=== PATIENT | male | born 1970 | race Caucasian/White ===

== ENCOUNTER 2017-02-04 11:00 | Emergency (ER) | payer OTHER ==
[2017-02-04 11:10] VITALS: TEMP 98.1; BMI 26.1
--- NOTE | 2017-02-04 11:12 | PDOC ---
History of Present Illness - General Chief Complaint: Lightheaded Stated Complaint: DIZZINESS, VOMITING Time Seen by Provider: 02/04/17 11:07 History Source: Patient Exam Limitations: No Limitations - History of Present Illness Initial Comments: 02/04/17 11:09 46 yo man with HLD and Non Insulin requiring Diabetes presents after he developed the sensation that the room was spinning while driving. He got very nauseated and threw up several times. He did have an episode of fluid in his ear a few months ago and while he is no acute distress, he does have obvious horizontal nystagmus. Timing/Duration: 1 hour Severity: mild Associated Symptoms: denies: denies symptoms Past History - Past Medical History Allergies/Adverse Reactions: Allergies Allergy/AdvReac Type Severity Reaction Status Date / Time No Known Drug Allergies Allergy Verified 02/04/17 11:04 Home Medications: Ambulatory Orders Atorvastatin Ca [Lipitor] 10 mg PO HS 02/04/17 Hydrocodone/Acetaminophen [Hydrocodon-Acetaminoph 7.5-325] 1 each PO TID PRN Meclizine HCl [Antivert -] 25 mg PO QID #120 tablet 02/04/17 Metformin HCl 500 mg PO BID 02/04/17 Ondansetron [Zofran *Odt*] 8 mg SL TID #30 od.tablet 02/04/17 Ranitidine [Zantac -] 150 mg PO DAILY 02/04/17 Asthma: No Cardiac Disorders: No Diabetes: No GI Disorders: Yes (acid reflux) HTN: No - Surgical History Orthopedic Surgery: Yes (knee sx) - Psycho/Social/Smoking Cessation Hx Anxiety: No Suicidal Ideation: No Smoking Status: No Smoking History: Current every day smoker Number of Cigarettes Smoked Daily: 30 'Breaking Loose' booklet given: 07/18/16 Hx Alcohol Use: No Drug/Substance Use Hx: No Substance Use Type: None Review of Systems - Review of Systems Able to Perform ROS?: Yes Is the patient limited Bulgarian proficient: Yes Constitutional: No: Symptoms Reported HEENTM: No: Symptoms Reported Respiratory: No: Symptoms reported Cardiac (ROS): No: Symptoms Reported ABD/GI: Yes: Nausea, Vomiting : No: Symptoms Reported Musculoskeletal: No: Symptoms Reported Integumentary: No: Symptoms Reported Neurological: Yes: Symptoms reported, See HPI, Dizziness Psychiatric: No: Anxiety, Depression Endocrine: No: Symptoms Reported Hematologic/Lymphatic: No: Symptoms Reported All Other Systems: Reviewed and Negative *Physical Exam - Physical Exam Comments: 02/04/17 13:23 46 yo male, nontoxic, NAD HEENT exam unremarkable x for horizontal nystagmus NECK Supple no bruits CHEST CTA Heart RRR No Murmur ABD Soft Non-Tender/Benign EXTR Unremarkable NEURO Intact - Detailed Testing Performed. ED Treatment Course - LABORATORY CBC & Chemistry Diagram: 02/04/17 11:30 02/04/17 11:30 *DC/Admit/Observation/Transfer Diagnosis at time of Disposition: Vertigo, Meniere's disease of both ears - Discharge Dispostion Disposition: HOME Condition at time of disposition: Improved - Prescriptions Prescriptions: Meclizine HCl [Antivert -] 25 mg PO QID #120 tablet Ondansetron [Zofran *Odt*] 8 mg SL TID #30 od.tablet - Referrals Referrals: Yaniv Davila MD [Staff Physician] - He Concepcion MD [Staff Physician] - - Patient Instructions Printed Discharge Instructions: DI for Vertigo, DI for Meniere's Disease Additional Instructions: Don't Drive until Dr. Rosado Says that you can Use the Antivert for spinning Use the Zofran for Nausea or Vomiting Off work until Tuesdsay REturn to us if any problems Best- Dr. Francisco Merritt
[2017-02-04] MEDS ORDERED: SODIUM CHLORIDE 500 ML IV STA (11:45)
[2017-02-04] MEDS ORDERED: MECLIZINE HCL 25 MG TABLET (FP) PO ONE (11:45)
[2017-02-04] MEDS ORDERED: ONDANSETRON 4 MG/2 ML VIAL IVPB ONE (11:45)
[2017-02-04] MEDS ORDERED: MECLIZINE HCL 25 MG TABLET (FP) ONE (11:50)
[2017-02-04] MEDS ORDERED: ONDANSETRON 4 MG/2 ML VIAL ONE (11:50)
[2017-02-04 11:57] LABS: ALBUMIN 4.2 g/dl (3.5-5.0); ALK PHOS 58 U/L (32-92); ANION GAP 9 (8-16); BILIRUBIN,TOTAL 0.5 mg/dl (0.2-1.0); CALCIUM 9.7 mg/dl (8.4-10.2); CO2 24 mmol/L (22-28); CREATININE 0.9 mg/dl (0.6-1.3); GLUCOSE,RANDOM 113 mg/dl (74-106); SGOT/AST 15 U/L (10-42); SGPT/ALT 23 U/L (10-40); TOT PROT 6.9 g/dl (6.4-8.3)
[2017-02-04 11:58] LABS: CPK(DFH) 73 IU/L (38-174)
[2017-02-04 12:03] LABS: INR 1.18 (0.82-1.09); PROTHROMBIN TIME (PATIENT) 13.2 SEC (10.2-13.0)
[2017-02-04 12:25] LABS: MCH 29.8 pg (25.7-33.7); MCHC 33.8 g/dl (32.0-35.9); MEAN CELL VOLUME 88.1 fl (80-96); PLATELET COUNT 542 K/MM3 (134-434); RDW 13.9 % (11.9-15.9); WHITE BLOOD COUNT 13.9 K/mm3 (4.0-10.8)
[2017-02-04 12:42] LABS: TROPONIN I (DFP) < 0.03 ng/ml (0.03-0.50)
[2017-02-04 13:36] VITALS: BP 127/79; PULSE 79
[2017-02-04 21:42] LABS: PLATELET ESTIMATE INCREASED (NORMAL)
--- NOTE | 2017-02-07 10:47 | EKG ---
Test Reason : Blood Pressure : / mmHG Vent. Rate : 078 BPM Atrial Rate : 078 BPM P-R Int : 112 ms QRS Dur : 112 ms QT Int : 368 ms P-R-T Axes : 017 059 042 degrees QTc Int : 419 ms NORMAL SINUS RHYTHM NORMAL ECG WHEN COMPARED WITH ECG OF 27-MAR-2010 12:56, NO SIGNIFICANT CHANGE WAS FOUND Confirmed by HENRI MENDIOLA MD ([id number]) on 02/07/2017 10:46:43 AM Referred By: MD BURNHAM Confirmed By:HENRI MENDIOLA MD
== END 2017-02-04 13:45 | disposition home or self-care (01) ==
LOC: FER 11:00
PROC: 3E033GC Introduction of Other Therapeutic Substance into Peripheral Vein, Percutaneous Approach (ICD-10-PCS; principal; 2017-02-04)
PROC: 3E0337Z Introduction of Electrolytic and Water Balance Substance into Peripheral Vein, Percutaneous Approach (ICD-10-PCS; 2017-02-04)
DX: H81.09 Meniere's disease, unspecified ear (principal); F17.210 Nicotine dependence, cigarettes, uncomplicated; K21.9 Gastro-esophageal reflux disease without esophagitis; E78.5 Hyperlipidemia, unspecified; E11.9 Type 2 diabetes mellitus without complications; Z79.84 Long term (current) use of oral hypoglycemic drugs
CPT/HCPCS: 36415; 70450-TC; 71010-TC; 80053; 82550; 84484; 85025; 85610; 85730; 93005; 99284-25

== ENCOUNTER 2018-12-20 13:05 | Emergency (ER) | payer SELFPAY ==
[2018-12-20 13:22] VITALS: BP 161/101; PULSE 97; TEMP 97.9; BMI 28.3
[2018-12-20] MEDS ORDERED: IBUPROFEN 600 MG TABLET (FP) PO ONE ×2 (13:25→13:27)
--- NOTE | 2018-12-20 13:27 | PDOC ---
History of Present Illness - General Chief Complaint: Injury Stated Complaint: LEFT KNEE PAIN Time Seen by Provider: 12/20/18 13:18 History Source: Patient Exam Limitations: No Limitations - History of Present Illness Initial Comments: 12/20/18 13:27 48-year-old male with history of hypertension, hyperlipidemia, GERD, chronic back pain presenting with left knee pain after twisting his knee as he was jumping off of the truck and landed on his feet. No head injury or LOC. No weakness or paresthesias. He took his Vicodin at home prior to ED presentation she usually takes for his lower back pain from prior injury Past History - Past Medical History Allergies/Adverse Reactions: Allergies Allergy/AdvReac Type Severity Reaction Status Date / Time No Known Drug Allergies Allergy Verified 12/20/18 13:06 Home Medications: Ambulatory Orders Atorvastatin Ca [Lipitor] 10 mg PO HS 02/04/17 Hydrocodone/Acetaminophen [Hydrocodon-Acetaminoph 7.5-325] 1 each PO TID PRN metFORMIN HCL [Metformin HCl] 500 mg PO BID 02/04/17 Asthma: No Cardiac Disorders: No COPD: No Diabetes: No GI Disorders: Yes (acid reflux) HTN: No Other medical history: BACK PAIN - Surgical History Abdominal Surgery: Yes (HERNIE REPAIR) Orthopedic Surgery: Yes (knee sx) - Suicide/Smoking/Psychosocial Hx Smoking Status: No Smoking History: Current every day smoker Have you smoked in the past 12 months: Yes Number of Cigarettes Smoked Daily: 30 Information on smoking cessation initiated: Yes 'Breaking Loose' booklet given: 07/18/16 Hx Alcohol Use: No Drug/Substance Use Hx: No Substance Use Type: None Review of Systems - Review of Systems Able to Perform ROS?: Yes Comments:: 12/20/18 13:29 MUSCULOSKELETAL: No joint pain and swelling. No muscle pain/arthralgias. +knee pain Back: +chronic back pain SKIN: no redness or skin changes, no discharge, no rash. No wounds. Hematologic: no easy bruising/bleeding. NEUROLOGIC: No weakness, numbness or tingling. Allergic/Immunologic: no allergies All other systems reviewed and negative, or as documented in HPI. *Physical Exam - Vital Signs Last Vital Signs Temp Pulse Resp BP Pulse Ox 97.9 F 97 H 20 161/101 H 97 12/20/18 13:05 12/20/18 13:05 12/20/18 13:05 12/20/18 13:05 12/20/18 13:05 - Physical Exam Comments: 12/20/18 13:29 General: NAD, well appearing Vascular: 2+ DP pulses symmetric and equal. Back: no midline tenderness, no stepoffs, FROM MSK: notable for soft compartments, Cap refill <2 sec. Proximal and distal strength 5/5, equal and symmetric. Plantar flexion and dorsiflexion 5/5. FROM. Sensation grossly intact to light touch. +left knee medial and lateral point tenderness, no joint laxity. lateral surgical scar present, well healed. no prox hip or ankle tenderness. no patellar tenderness. quad and patellar tendon intact, nontender. Neuro: alert, no focal neurologic deficits Skin: color normal color, warm and well perfused. Cap refill <2 sec. ED Treatment Course - RADIOLOGY Radiology Studies Ordered: Category Date Time Status KNEE 3 POS-LEFT [RAD] Stat Radiology 12/20/18 13:18 Ordered Medical Decision Making - Medical Decision Making 12/20/18 13:26 hpi as documented VS reviewed mildly hypertensive, but does have pain DDx extremity pain: Sprain, contusion, extremity fracture, arthritis, knee effusion, knee sprain. tendonitis (quad/patellar), patella fx, ligamental tear. Xray left knee with normal joint space alignment, no acute fx or dislocation. no patella or tibial/fibular fx. degenerative joint and patella noted. rpt VS improved, comfortable, still some pain advised nsaids, mild to moderate pain. also has vicodin at home. Discussed results with patient. DON wrap for comfort and knee immobilizer. Rest ice and elevation. Pain control with OTC meds including motrin/tylenol as needed every 6 hours; no narcotics needed. Ortho followup provided - He sees Dr Hernandez at [facility]. [facility]. Please return to ED for increased pain, weakness, numbness/tingling, fever, or redness. 12/20/18 13:30 12/20/18 13:36 12/20/18 14:27 *DC/Admit/Observation/Transfer Diagnosis at time of Disposition: Sprain of left knee/leg - Discharge Dispostion Disposition: HOME Condition at time of disposition: Improved Decision to Admit order: No - Referrals Referrals: Faustino Jackson MD [Staff Physician] - Arnel Yin MD [Staff Physician] - Irwin Hernandez MD [Staff Physician] - - Patient Instructions Printed Discharge Instructions: DI for Knee Sprain Additional Instructions: you most likely have knee sprain avoid heavy lifting or strenuous activity to minimize further injury wear the knee brace for comfort, or don bandage. your x rays were negative for injury or fracture, so likely sprain May take ibuprofen 400-600mg and/or tylenol 650 to 975 mg every 6 hours as needed for mild to moderate pain, available over the counter. This does not require narcotics, as it will precipitate injuries and falls. continue with range of motion exercises, as this will facilitate the healing process; avoid being bed bound and immobile. RICE rest ice elevate the affected extremity Rest, Ice (20 minutes at a time, 3 times a day), Compression (DON wrap or splint ), Elevation (above the heart). Follow up with your primary care physician in 1 week if symptoms persist, or with orthopedics if needed. you usually see Dr Hernandez , you can see him again for your knee. Follow up with primary doctor/specialist services provided as well. orthopedics referrals given. This should heal over the next 3-5 days. - Post Discharge Activity Forms/Work/School Notes: Back to Work
== END 2018-12-20 14:56 | disposition home or self-care (01) ==
LOC: FER 13:05
PROC: 2W3RX1Z Immobilization of Left Lower Leg using Splint (ICD-10-PCS; principal; 2018-12-20)
DX: S83.92XA Sprain of unspecified site of left knee, initial encounter (principal); Y93.39 Activity, other involving climbing, rappelling and jumping off; Y93.89 Activity, other specified; Y92.89 Other specified places as the place of occurrence of the external cause
CPT/HCPCS: 73562-TC-LT-FY; 99281-25

== ENCOUNTER 2019-06-19 12:11 | Emergency (ER) | payer OTHER ==
[2019-06-19 12:17] VITALS: TEMP 97.7; BMI 27.9
[2019-06-19] MEDS ORDERED: DOXYCYCLINE HYCLATE 100 MG CAPSULE PO ONE ×2 (12:28→12:40)
--- NOTE | 2019-06-19 12:35 | PDOC ---
History of Present Illness - General Chief Complaint: Bite Stated Complaint: TICK BITE Time Seen by Provider: 06/19/19 12:18 History Source: Patient Exam Limitations: No Limitations - History of Present Illness Initial Comments: 06/19/19 12:39 48-year-old male history of high cholesterol, hypertension presents status post removal of a tick from his left torso. Patient works in construction, lives in [facility], does not recall specifically being in a wooded area or camping , this morning noted embedded tick which he removed with a needle nose tweezer, presents for evaluation. No systemic symptoms of fever/chills/myalgias/rash, did not take a picture of or bring the tick with him. No history of Lyme disease, presents for testing and prophylaxis. Past History - Past Medical History Allergies/Adverse Reactions: Allergies Allergy/AdvReac Type Severity Reaction Status Date / Time No Known Drug Allergies Allergy Verified 06/19/19 12:13 Home Medications: Ambulatory Orders Atorvastatin Ca [Lipitor] 20 mg PO HS 02/04/17 metFORMIN HCL [Metformin HCl] 1,000 mg PO BID 02/04/17 Aspirin [Aspirin EC] 81 mg PO DAILY 04/16/19 Pantoprazole Sodium [Protonix] 40 mg PO DAILY 04/16/19 Anemia: No Asthma: No Cancer: No Cardiac Disorders: No CVA: No COPD: No CHF: No Dementia: No Diabetes: Yes GI Disorders: Yes (acid reflux) Disorders: No HTN: No Hypercholesterolemia: Yes Liver Disease: No Seizures: No Thyroid Disease: No - Surgical History Abdominal Surgery: Yes (HERNIE REPAIR) Appendectomy: No Cardiac Surgery: No Cholecystectomy: No Lung Surgery: No Neurologic Surgery: No Orthopedic Surgery: Yes (knee sx) - Psycho Social/Smoking Cessation Hx Smoking Status: No Smoking History: Current every day smoker Have you smoked in the past 12 months: Yes Number of Cigarettes Smoked Daily: 30 Information on smoking cessation initiated: Yes 'Breaking Loose' booklet given: 07/18/16 Hx Alcohol Use: Yes (OCASIONAL) Drug/Substance Use Hx: No Substance Use Type: Alcohol Hx Substance Use Treatment: No Review of Systems - Review of Systems Constitutional: No: Chills, Fever, Night Sweats HEENTM: No: Recent change in vision, Double Vision Respiratory: No: Shortness of Breath Cardiac (ROS): No: Chest Pain ABD/GI: No: Diarrhea, Nausea, Vomiting Musculoskeletal: No: Joint Pain, Joint Swelling, Muscle Pain Integumentary: No: Rash Neurological: No: Headache, Ataxia All Other Systems: Reviewed and Negative *Physical Exam - Vital Signs Last Vital Signs Temp Pulse Resp BP Pulse Ox 97.7 F 89 19 155/97 99 06/19/19 12:13 06/19/19 12:13 06/19/19 12:13 06/19/19 12:13 06/19/19 12:13 - Physical Exam Comments: 06/19/19 12:43 Afebrile. Vital signs normal. GENERAL: The patient is awake, alert, and fully oriented, in no acute distress. HEAD: Normal with no signs of trauma. EYES: PERRL, EOMI, sclera anicteric. ENT: oropharynx clear. Moist mucous membranes. NECK: Normal range of motion, supple without lymphadenopathy, JVD, or masses. LUNGS: Breath sounds equal, clear to auscultation bilaterally. No wheeze/ crackles. HEART: Regular rate and rhythm, normal S1 and S2 without murmur or rub. EXTREMITIES: Normal range of motion, no edema. 2+ distal pulses. No cords, erythema, or tenderness. NEUROLOGICAL: Cranial nerves II through XII grossly intact. Normal speech, normal gait PSYCH: Normal mood, normal affect. SKIN: Warm, Dry. Punctate lesion to L lateral abdomen, scab in place and cleansed with alcohol, no retained portions of tick, base is clear. 2mm surrounding erythema without EM rash. No other lesions. Medical Decision Making - Medical Decision Making 06/19/19 12:45 48-year-old male with embedded tick of unknown duration, patient states it was slightly engorged, but did not bring the tick with him. No systemic symptoms of active Lyme and no evidence on physical exam. Lyme titer sent We will treat prophylactically per guidelines with doxycycline 200 mg x 1 Patient will follow-up titers with his PCP Discharge - Discharge Information Problems reviewed: Yes Clinical Impression/Diagnosis: Tick bite of abdominal wall Qualifiers: Encounter type: initial encounter Qualified Code(s): S30.861A - Insect bite ( nonvenomous) of abdominal wall, initial encounter; W57.XXXA - Bitten or stung by nonvenomous insect and other nonvenomous arthropods, initial encounter Condition: Stable Disposition: HOME - Follow up/Referral - Patient Discharge Instructions Patient Printed Discharge Instructions: Protect Yourself from Tickborne Illnesses Additional Instructions: Activity as tolerated. Stay hydrated. The tick was completely removed and there appears to be no remnants. Lyme titers were sent and the results should be available within 2 to 3 days. Because of the unknown duration of the tick exposure, you were treated with a preventative/prophylactic dose of doxycycline in the emergency department today. Continue your medications as previously prescribed by your physician. You should follow up with your primary doctor as soon as possible regarding today's emergency department visit. Return to the emergency department for any new or concerning symptoms, particularly fevers or chills, expanding rash, body aches or joint aches or swelling, headaches or confusion. - Post Discharge Activity
[2019-06-19 12:47] VITALS: BP 140/86; PULSE 88
== END 2019-06-19 13:01 | disposition home or self-care (01) ==
LOC: FER 12:11
DX: S30.861A Insect bite (nonvenomous) of abdominal wall, initial encounter (principal); W57.XXXA Bitten or stung by nonvenomous insect and other nonvenomous arthropods, initial encounter; Y93.89 Activity, other specified; Y92.9 Unspecified place or not applicable; E11.9 Type 2 diabetes mellitus without complications; K21.9 Gastro-esophageal reflux disease without esophagitis; E78.00 Pure hypercholesterolemia, unspecified; F17.210 Nicotine dependence, cigarettes, uncomplicated; Z79.84 Long term (current) use of oral hypoglycemic drugs
CPT/HCPCS: 36415; 86618; 99282-25

== ENCOUNTER 2020-12-19 10:15 | Emergency (ER) | payer OTHER ==
[2020-12-19 10:28] VITALS: BP 148/85; PULSE 91; TEMP 98; BMI 3905.5
[2020-12-19] MEDS ORDERED: ACETAMINOPHEN 500 MG TABLET (FP) PO ONE (10:28)
[2020-12-19] MEDS ORDERED: ACETAMINOPHEN 500 MG TABLET (FP) ONE (10:37)
== END 2020-12-19 12:06 | disposition home or self-care (01) ==
LOC: FER 10:15
DX: S09.90XA Unspecified injury of head, initial encounter (principal)
CPT/HCPCS: 70450-TC; 70486-TC; 99284-25

== ENCOUNTER 2023-11-29 13:04 | Emergency (ER) | payer OTHER, BC ==
[2023-11-29 13:21] VITALS: BP 167/70; PULSE 89; RESP 20; TEMP 98.1; BMI 4198.5
== END 2023-11-29 14:53 | disposition home or self-care (01) ==
LOC: FER 13:04
DX: S93.401A Sprain of unspecified ligament of right ankle, initial encounter (principal); X50.1XXA Overexertion from prolonged static or awkward postures, initial encounter; Y99.0 Civilian activity done for income or pay
CPT/HCPCS: 73610-TC-RT-FY; 73630-TC-RT-FY; 99283-25